=== PATIENT | female | born 1965 | race Caucasian/White ===

== ENCOUNTER 2020-03-06 14:51 | Outpatient (REF) | payer MEDICAID, SELFPAY ==
[2020-03-06 21:03] LABS: Abs Immature Grans 0.02 10^3/uL (0.0-0.06); Absolute Basophil Count 0.09 10^3/uL (0.0-0.2); Absolute Eosinophil Count 0.32 10^3/uL (0.0-0.7); Absolute Lymphocyte Count 1.27 10^3/uL (1.2-3.4); Absolute Monocyte Count 0.44 10^3/uL (0.1-0.8); Absolute Neutrophil Count 3.44 10^3/uL (1.2-6.7); Basophils % 1.6; Eosinophils % 5.7; HCT 43.8 % (36.0-46.0); HGB 14.8 g/dL (11.2-15.7); Immature Grans % 0.4; Lymphocytes % 22.8; MCH 33.5 pg (27.0-33.0); MCHC 33.8 % (32.0-36.0); MCV 99.1 fL (80-95); MPV 10.7 fL (8.0-11.0); Monocytes % 7.9; Neutrophils % 61.6; Nucleated RBC 0 %; Platelet Count 272 10^3/uL (130-400); RBC 4.42 10^6/uL (3.93-5.22); RDW 11.7 % (11.7-14.6); RDW-SD 42.8 fL; WBC 5.58 10^3/uL (4.4-10.8)
[2020-03-06 21:29] LABS: Lithium 0.29 mmol/L (0.60-1.20)
[2020-03-06 22:13] LABS: ALT 48 U/L (14-59); AST 29 U/L (15-37); Alkaline Phosphatase 65 U/L (46-116); Anion Gap 9.1 mmol/L (3-11); BUN 16 mg/dL (7-18); Bilirubin, Total 0.4 mg/dL (0.2-1.0); CO2 25.9 mmol/L (21.0-32.0); CREATININE 0.96 mg/dL (0.55-1.02); Calcium 8.9 mg/dL (8.5-10.1); Calculated LDL 127 mg/dL (<100); Chloride 105 mmol/L (98-107); Cholesterol 204 mg/dL (<200); Glucose 109 mg/dL (74-106); HDL Cholesterol 61 mg/dL (40-60); Potassium 4.4 mmol/L (3.5-5.1); Sodium 140 mmol/L (136-145); TSH 3.47 uIU/mL (0.36-3.74); Total Protein 7.1 g/dL (6.4-8.2); Triglyceride 84 mg/dL (<150); Vitamin B12 184 pg/mL (193-986)
== END 2020-03-06 15:11 ==
LOC: NCHCN 14:51
PROVIDERS: PCP Nurse Practitioner Family; Visit Provider Nurse Practitioner Family
DX: F41.8 Other specified anxiety disorders (principal); F43.10 Post-traumatic stress disorder, unspecified
CPT/HCPCS: 80053; 80061; 80178; 82607; 84443; 85025

== ENCOUNTER 2020-05-12 13:21 | Outpatient (REF) | payer MEDICAID, SELFPAY ==
[2020-05-13 19:27] LABS: COVID-19 RT-PCR UVMMC Result Negative (Negative)
== END 2020-05-12 13:41 ==
LOC: NCHCN 13:21
PROVIDERS: PCP Nurse Practitioner Family; Visit Provider Nurse Practitioner Community Health
DX: J02.9 Acute pharyngitis, unspecified (principal)
CPT/HCPCS: U0003

== ENCOUNTER 2020-06-12 19:35 | Outpatient (REF) | payer MEDICAID, SELFPAY ==
[2020-06-12 21:58] LABS: Lithium 0.4 mmol/l (0.6-1.2)
== END 2020-06-12 19:36 | disposition home or self-care (01) ==
LOC: NCHCN 19:35
PROVIDERS: PCP Nurse Practitioner Family; Visit Provider Nurse Practitioner Family
DX: F41.8 Other specified anxiety disorders (principal); Z51.81 Encounter for therapeutic drug level monitoring
CPT/HCPCS: 80178

== ENCOUNTER 2020-08-04 21:01 | Outpatient (REF) | payer MEDICAID, SELFPAY ==
[2020-08-04 21:33] LABS: Lithium 0.8 mmol/l (0.6-1.2)
== END 2020-08-04 21:02 | disposition home or self-care (01) ==
LOC: LBN 21:01
PROVIDERS: PCP Nurse Practitioner Family; Visit Provider Nurse Practitioner Family
DX: F31.61 Bipolar disorder, current episode mixed, mild (principal); F43.12 Post-traumatic stress disorder, chronic; F51.05 Insomnia due to other mental disorder; Z51.81 Encounter for therapeutic drug level monitoring
CPT/HCPCS: 80178

== ENCOUNTER 2021-02-04 15:07 | Outpatient (REF) | payer MEDICAID, SELFPAY ==
[2021-02-04 21:11] LABS: Lithium 0.6 mmol/l (0.6-1.2)
[2021-02-04 21:29] LABS: TSH 2.85 uIU/mL (0.36-3.74)
== END 2021-02-04 15:08 | disposition home or self-care (01) ==
LOC: NCHCN 15:07
PROVIDERS: PCP Nurse Practitioner Family; Visit Provider Nurse Practitioner Family
DX: F41.8 Other specified anxiety disorders (principal); F43.10 Post-traumatic stress disorder, unspecified; Z51.81 Encounter for therapeutic drug level monitoring; Z79.899 Other long term (current) drug therapy
CPT/HCPCS: 80178; 84443

== ENCOUNTER 2021-05-27 11:54 | Outpatient (REF) | payer MEDICAID, SELFPAY ==
[2021-05-27 14:58] LABS: Anion Gap 8.9 mmol/L (3-11); BUN 17 mg/dL (7-18); CO2 25.1 mmol/L (21.0-32.0); CREATININE 0.9 mg/dL (0.55-1.02); Calcium 9.3 mg/dL (8.5-10.1); Chloride 107 mmol/L (98-107); Glucose 127 mg/dL (74-106); Potassium 4.2 mmol/L (3.5-5.1); Sodium 141 mmol/L (136-145); TSH (W/Ref FT4) 3.06 uIU/mL (0.36-3.74)
[2021-05-27 15:11] LABS: Hemoglobin A1C 5.4 % (<5.7)
== END 2021-05-27 11:55 | disposition home or self-care (01) ==
LOC: NCHCN 11:54
PROVIDERS: PCP Nurse Practitioner Family; Visit Provider Nurse Practitioner Family
DX: R94.6 Abnormal results of thyroid function studies (principal); R73.9 Hyperglycemia, unspecified; N18.2 Chronic kidney disease, stage 2 (mild)
CPT/HCPCS: 80048; 83036; 84443